=== PATIENT | male | born 1955 | race Caucasian/White ===

== ENCOUNTER 2016-05-03 08:41 | Emergency (ER) | payer OTHER ==
[2016-05-03 08:50] VITALS: TEMP 98.1
--- NOTE | 2016-05-03 08:53 | EDPHY ---
H & P Stated Complaint: poss kidney stone Time Seen by Provider: 05/03/16 08:47 HPI/ROS: CHIEF COMPLAINT: Left lower quadrant and flank pain HISTORY OF PRESENT ILLNESS: The patient presents to the ED complaining of moderate left lower quadrant flank pain that began at 7 o'clock this morning. The patient denies associated nausea. He reports he cannot achieve a position of comfort. The patient does have a history of a kidney stone once in the past which he passed fairly abruptly. The patient denies any fever, cough or congestion. He denies hematuria or dysuria. He has no complaints of pain in his lower extremities and denies any specific neurologic complaints of numbness or weakness. REVIEW OF SYSTEMS: A comprehensive 10 point review of systems is otherwise negative aside from elements mentioned in the history of present illness. Source: Patient Exam Limitations: No limitations - Personal History Current Tetanus Diphtheria and Acellular Pertussis (TDAP): Yes - Medical/Surgical History PMH: Past medical history: Hypertension, hyperlipidemia Other PMH: HTN. glucose intolerant - Social History Smoking Status: Never smoked - Physical Exam Exam: General Appearance: Alert, mild discomfort from pain Eyes: Pupils equal and round no pallor or injection ENT, Mouth: Mucous membranes moist Respiratory: There are no retractions, lungs are clear to auscultation Cardiovascular: Regular rate and rhythm Gastrointestinal: Tenderness to palpation left lower quadrant, tenderness to palpation in the left CVA area Neurological: A&O, normal motor function, normal sensory exam, normal cranial nerves Skin: Warm and dry, no rashes Musculoskeletal: Neck is supple nontender Extremities: symmetrical, full range of motion Constitutional: Initial Vital Signs Temperature (C) 36.7 C 05/03/16 08:47 Heart Rate 77 05/03/16 08:47 Respiratory Rate 18 05/03/16 08:47 Blood Pressure 158/87 H 05/03/16 08:47 O2 Sat (%) 100 05/03/16 08:47 O2 Delivery Mode Room Air Allergies/Adverse Reactions: No Known Allergies Allergy (Unverified 05/03/16 08:47) Home Medications: Medication Instructions Recorded Aspirin [Aspirin 81mg (*)] 81 mg PO DAILY 05/03/16 Lisinopril [Zestril 5 mg (*)] 5 mg PO 05/03/16 Ondansetron Odt [Zofran Odt] 4 mg PO Q4PRN PRN #20 tab 05/03/16 Rosuvastatin Calcium [Crestor 20mg 20 mg PO DAILY 05/03/16 (*)] Tamsulosin HCl [Flomax] 0.4 mg PO DAILY PRN #5 cap 05/03/16 oxyCODONE/APAP 5/325 [Percocet 1 - 2 tab PO Q6-8PRN PRN #20 tab 05/03/16 5/325 (RX)] Medical Decision Making - Diagnostics Imaging: Unenhanced CT Scan of the Abdomen and Pelvis (Renal Stone Protocol) Clinical History: 61-year-old male with abdominal and flank pain since last evening and a history of kidney stones. Rule out nephrolithiasis or obstructive uropathy. Findings: Unenhanced CT Abdomen: There is atherosclerotic calcification of the proximal left anterior descending coronary artery and also involving the right coronary artery. There is no pleural or pericardial effusion. There is some linear subsegmental atelectasis versus scar in the inferomedial right middle lobe and the lung bases. There is some intraluminal air within the distal thoracic esophagus which may reflect some reflux or air swallowing. There are no hepatic , pancreatic, splenic , or adrenal calculi. There is bilateral nephrolithiasis, with some 1 to 2 mm calculi seen in the upper mid and lower pole portions of the right kidney, as well as a 5 x 5 mm calculus noted in the lower pole of the right kidney. There are also 1 to 2 mm calculi seen in the upper and mid pole portions of the left kidney, and a dominant 6 x 6 mm calculus in the lower pole of the left kidney. There is a 9 mm hyperdense cyst associated with the lateral mid pole of the left kidney on series 3 , image 151, with a Hounsfield unit measurement of 36. Given the lack of any preceding studies, repeat CT imaging in six months is recommended to assure stability. This could be performed without and with contrast. There is a moderate left hydroureteronephrosis secondary to a 7 x 7 x 9 mm calculus in the left ureter at the cephalad L4 level. There is some associated periureteral stranding. The left ureter beyond this point is normal in diameter, and there is no evidence of distal ureterolithiasis. There is mural calcification of the abdominal aorta. There is a circumaortic left renal vein. There is moderate centripetal obesity. There is mild constipation. There is no abnormal small bowel dilatation or ascites. The osseous structures are notable for a mild superior cortical endplate compression deformity at L2 and severe L1-L2 and L3-L4 degenerative disk space narrowing. Impression: 1. LAD and RCA coronary artery calcifications. A formal CT heart scan is suggested. 2. Bilateral nephrolithiasis with moderate left hydroureteronephrosis secondary to a 7 x 7 x 9 mm left ureterolith at the cephalad L4 level. 3. There is a 9 mm hyperdense cystic structure associated with the lateral mid pole of the left kidney. Repeat CT imaging in six months is recommended, without and with contrast. 4. Mild constipation. 5. Centripetal obesity. 6. Mild prostate gland enlargement. 7. Sigmoid colon diverticulosis with no active diverticulitis. Results were conveyed to Dr. Elmer Carbajal. ED Course/Re-evaluation: The patient presents to the ED with acute onset left sided abdominal flank pain. The patient had an IV established. He received a L of normal saline, IV morphine and Toradol. A stat CT scan of the abdomen and pelvis has been ordered for evaluation of his symptoms. CT scan of the abdomen pelvis does demonstrate a 7 x 7 mm proximal left ureteral stone. Incidentally the patient is noted to have coronary calcifications and a likely renal cysts which requires further radiographic follow-up at 6 months. I have informed the patient of these findings. Patient is re-evaluated at 10:30 a.m.: He reports his pain is currently a 1/ 10. The patient would like to see if the stone passes spontaneously. He will be discharged home with customary aftercare instructions. I spoke with Dr. Miguel Noel from Urology who will make arrangements to see the patient in the office this week. The patient has been informed that this stone as a lower likelihood of passing and may require intervention for removal. The patient does have some mild pyuria. There is no bacteriuria. I will withhold antibiotics pending the results of a urine culture. Differential Diagnosis: Differential diagnosis considered includes nephrolithiasis, pyelonephritis, myofascial strain, abdominal aortic aneurysm - Data Points Laboratory Results: Laboratory Results 05/03/16 08:52 05/03/16 08:52 05/03/16 05/03/16 10:56 08:52 WBC 8.12 10^3/uL (3.80-9.50) RBC 4.79 10^6/uL (4.40-6.38) Hgb 14.9 g/dL (13.7-17.5) Hct 42.9 % (40.0-51.0) MCV 89.6 fL (81.5-99.8) MCH 31.1 pg (27.9-34.1) MCHC 34.7 g/dL (32.4-36.7) RDW 12.6 % (11.5-15.2) Plt Count 202 10^3/uL (150-400) MPV 9.9 fL (8.7-11.7) Neut % (Auto) 74.6 H % (39.3-74.2) Lymph % (Auto) 17.0 % (15.0-45.0) Braxton % (Auto) 7.1 % (4.5-13.0) Eos % (Auto) 0.6 % (0.6-7.6) Baso % (Auto) 0.2 L % (0.3-1.7) Nucleat RBC Rel Count 0.0 % (0.0-0.2) Absolute Neuts (auto) 6.05 10^3/uL (1.70-6.50) Absolute Lymphs (auto) 1.38 10^3/uL (1.00-3.00) Absolute Monos (auto) 0.58 10^3/uL (0.30-0.80) Absolute Eos (auto) 0.05 10^3/uL (0.03-0.40) Absolute Basos (auto) 0.02 10^3/uL (0.02-0.10) Absolute Nucleated RBC 0.00 10^3/uL (0-0.01) Immature Gran % 0.5 % (0.0-1.1) Immature Gran # 0.04 10^3/uL (0.00-0.10) Sodium 142 mEq/L (134-144) Potassium 4.0 mEq/L (3.5-5.2) Chloride 103 mEq/L (97-110) Carbon Dioxide 21 L mEq/l (22-31) Anion Gap 18 mEq/L (8-16) BUN 16 mg/dL (7-23) Creatinine 1.1 mg/dL (0.7-1.3) Estimated GFR > 60 Glucose 137 H mg/dL (70-100) Calcium 9.5 mg/dL (8.5-10.4) Urine Color YELLOW Urine Appearance MODERATELY TURBID Urine pH 7.0 (5.0-7.5) Ur Specific [place] 1.026 (1.002-1.030) Urine Protein 2+ H (NEGATIVE) Urine Ketones 1+ H (NEGATIVE) Urine Blood 3+ H (NEGATIVE) Urine Nitrate NEGATIVE (NEGATIVE) Urine Bilirubin NEGATIVE (NEGATIVE) Urine Urobilinogen NEGATIVE EU (0.2-1.0) Ur Leukocyte Esterase NEGATIVE (NEGATIVE) Urine RBC 50-182 H /hpf (0-3) Urine WBC 5-10 H /hpf (0-3) Ur Epithelial Cells TRACE /lpf (NONE-1+) Urine Mucus 1+ /lpf (NONE-1+) Ur Culture Indicated? INDICATED H (NI) Urine Glucose NEGATIVE (NEGATIVE) Medications Given: Discontinued Medications Sodium Chloride (Ns) 1,000 mls @ 0 mls/hr IV ONCE ONE PRN Reason: Wide Open Stop: 05/03/16 11:01 Last Admin: 05/03/16 11:00 Dose: 1,000 mls Ketorolac Tromethamine (Toradol) 30 mg IVP EDNOW ONE Stop: 05/03/16 08:59 Last Admin: 05/03/16 09:15 Dose: 30 mg Morphine Sulfate (Morphine) 6 mg IVP EDNOW ONE Stop: 05/03/16 08:59 Last Admin: 05/03/16 09:16 Dose: 6 mg Tamsulosin HCl (Flomax) 0.4 mg PO EDNOW ONE Stop: 05/03/16 10:37 Last Admin: 05/03/16 10:59 Dose: 0.4 mg Departure - Departure Disposition: Home, Routine, Self-Care Clinical Impression: Ureterolithiasis, Obstructive uropathy, Hydronephrosis, left Condition: Good Instructions: Kidney Stones (ED) Additional Instructions: 1. Take Ibuprofen or Motrin 600 mg by mouth three times a day. 2. Percocet as needed for severe pain 3. Flomax as directed 4. Zofran as needed for nausea 5. Strain urine as directed 6. Return to the Emergency Department for intractable pain, fever or vomiting. 7. Followup with the urologist you have been referred to for unimproved symptoms. Please contact their office today to schedule earlier follow-up visit. Dr. Noel is expecting your telephone call. 8. Additionally, your CT scan does demonstrate a cyst on your kidney which are radiologist recommends having follow-up in the form of a repeat CT scan in 6 months. Please coordinate this with your primary care provider. Additionally, your noted to have coronary calcifications on your CT scan. As you have headache calcium score in the past, I recommend reviewing this finding with your primary care provider. Obviously you should return to the ED immediately should you experience chest pain or shortness of breath, Referrals: Miguel Noel MD [Medical Doctor] - As per Instructions Prescriptions: Tamsulosin HCl [Flomax] 0.4 mg PO DAILY PRN #5 cap PRN Reason: for pain oxyCODONE/APAP 5/325 [Percocet 5/325 (RX)] 1 - 2 tab PO Q6-8PRN PRN #20 tab PRN Reason: for pain Ondansetron Odt [Zofran Odt] 4 mg PO Q4PRN PRN #20 tab PRN Reason: For Nausea
[2016-05-03] MEDS ORDERED: KETOROLAC 30 MG/1 ML SDV IVP ONE (08:58)
[2016-05-03 09:08] LABS: % IMMATURE GRANULYOCYTES 0.5 % (0.0-1.1); ABSOLUTE IMMATURE GRANULOCYTES 0.04 10^3/uL (0.00-0.10); ADD DIFF? NO; ADD MORPH? NO; ADD SCAN? NO; ATYPICAL LYMPHOCYTE FLAG 0 (0-99); FRAGMENT RBC FLAG 0 (0-99); HEMATOCRIT 42.9 % (40.0-51.0); HEMOGLOBIN 14.9 g/dL (13.7-17.5); LEFT SHIFT FLG 0 (0-99); LIPEMIA HEMOLYSIS FLAG 90 (0-99); MEAN CELL HEMOGLOBIN 31.1 pg (27.9-34.1); MEAN CELL HEMOGLOBIN CONCENTR. 34.7 g/dL (32.4-36.7); MEAN CELL VOLUME 89.6 fL (81.5-99.8); MEAN PLATELET VOLUME 9.9 fL (8.7-11.7); PLATELET CLUMPS FLAG 0 (0-99); PLATELET COUNT 202 10^3/uL (150-400); RED BLOOD CELL COUNT 4.79 10^6/uL (4.40-6.38); RED CELL DISTRIBUTION WIDTH 12.6 % (11.5-15.2)
[2016-05-03 09:36] LABS: ANION GAP 18 mEq/L (8-16); CALCIUM 9.5 mg/dL (8.5-10.4); CARBON DIOXIDE 21 mEq/l (22-31); CHLORIDE 103 mEq/L (97-110); CREATININE 1.1 mg/dL (0.7-1.3); GLOMERULAR FILTRATION RATE > 60; GLUCOSE 137 mg/dL (70-100); SODIUM 142 mEq/L (134-144)
--- NOTE | 2016-05-03 10:10 | CT ---
Unenhanced CT Scan of the Abdomen and Pelvis (Renal Stone Protocol) Clinical History: 61-year-old male with abdominal and flank pain since last evening, and a history of kidney stones. Rule out nephrolithiasis or obstructive uropathy. Technique: Neither oral, retrograde rectal, nor IV contrast was administered. A multidetector unenhan rayne helical CT scan was obtained from the lung bases inferiorly through the proximal femora, with nora ges reformatted at 2.50 and 1.25 increments, and reviewed at a variety of window and level settings. Parasagittal and paracoronal reconstructed images are reviewed on the workstation. DFOV is 42 cm. Dos e reduction protocol was used. Findings: Unenhanced CT Scan of the Abdomen: There is atherosclerotic calcification of the proximal left anteri or descending coronary artery, and also involving the right coronary artery. There is no pleural or p ericardial effusion. There is some linear subsegmental atelectasis versus scar in the inferomedial ri ght middle lobe and at the lower lobes. There is some intraluminal air within the distal thoracic eso phagus, which may reflect some reflux or air swallowing. There are no hepatic, pancreatic, splenic, o r adrenal calculi. There is bilateral nephrolithiasis, with some 1 to 2 mm calculi seen in the upper, mid, and lower pole portions of the right kidney, as well as a 5 x 5 mm calculus noted in the lower pole of the right kidney. There are also 1 to 2 mm calculi seen in the upper and mid pole portions of the left kidney, and a dominant 6 x 6 mm calculus in the lower pole of the left kidney. There is a 9 mm hyperdense cyst associated with the lateral mid-pole of the left kidney on series 3, image 151, w ith a Hounsfield unit measurement of 36. Given the lack of any preceding studies, repeat CT imaging i n six months is recommended to assure stability. This could be performed without and with contrast. T here is a moderate left hydroureteronephrosis secondary to a 7 x 7 x 9 mm calculus in the left ureter at the cephalad L4 level. There is some associated periureteral stranding. The left ureter beyond th is point is normal in diameter, and there is no evidence of distal ureterolithiasis. There is mural c alcification of the abdominal aorta. There is a circumaortic left renal vein. There is moderate centr ipetal obesity. There is mild constipation. There is no abnormal small bowel dilatation or ascites. T he osseous structures are notable for a mild superior cortical endplate compression deformity at L2, and severe L1-L2 and L3-L4 degenerative disk space narrowing. Unenhanced CT Scan of the Pelvis: The urinary bladder is moderately distended. The prostate gland is mildly enlarged, measuring 5.0 x 3.4 x 4.4 cm. The urinary bladder is mildly distended. There are no distal ureteroliths or urinary bladder calculi, although there are some vascular calcifications prese nt. The osseous structures are age-appropriate. There are a few sigmoid colon diverticula, without ac tive diverticulitis. Impression: 1. LAD and RCA coronary artery calcifications. A formal CT heart scan is suggested. 2. Bilateral nephrolithiasis with moderate left hydroureteronephrosis secondary to a 7 x 7 x 9 mm lef t ureterolith at the cephalad L4 level. 3. There is a 9 mm hyperdense cystic structure associated with the lateral mid pole of the left kidne y. Repeat CT imaging in six months is recommended, without and with contrast. 4. Mild constipation. 5. Centripetal obesity. 6. Mild prostate gland enlargement. 7. Sigmoid colon diverticulosis, with no active diverticulitis. Results were conveyed to Dr. Elmer Carbajal. Attention: This CT examination is specifically designed to evaluate patients who are clinically susp ected of having acute obstructive uropathy. This examination does not use radiographic contrast, and as such, provides only a limited evaluation of the abdomen, pelvis, and retroperitoneum. If there i s further clinical suspicion for pathological conditions other than obstructive uropathy, a complete CT evaluation of the abdomen and pelvis utilizing intravenous, oral, and rectal contrast should be co nsidered. A test result has been communicated to a licensed care provider and documented in Remote Assistant, 10:00:37 A M, 05/03/2016, Remote Assistant Message ID [id number].
[2016-05-03] MEDS ORDERED: TAMSULOSIN HCL 0.4 MG CAP PO ONE (10:36)
[2016-05-03] MEDS ORDERED: NS 1,000 ML IV ONE (11:00)
[2016-05-03 11:12] LABS: COLOR YELLOW; LEUKOCYTE ESTERASE,URINE NEGATIVE (NEGATIVE); NITRITE,URINE NEGATIVE (NEGATIVE)
[2016-05-03 11:20] LABS: MUCUS 1+ /lpf (NONE-1+); RBC,URINE 50-182 /hpf (0-3)
[2016-05-03 11:46] VITALS: BP 139/86; PULSE 76; RESP 16; O2SAT 96
== END 2016-05-03 12:36 | disposition home or self-care (01) ==
DX: N20.1 Calculus of ureter (principal); N13.9 Obstructive and reflux uropathy, unspecified; N13.30 Unspecified hydronephrosis; I10 Essential (primary) hypertension; Z79.82 Long term (current) use of aspirin
CPT/HCPCS: 96374; J1885